=== PATIENT | male | born 1965 | race Caucasian/White ===

== ENCOUNTER → 2018-11-08 | Outpatient (CLI) | payer BC ==
--- NOTE | 2018-11-08 07:54 | US ---
EXAMINATION TYPE: US abdomen comp/pelvis limited DATE OF EXAM: 11/08/2018 COMPARISON: US 12/27/2012, CT 11/19/2012 CLINICAL HISTORY: R1012 Left upper quadrant pain R10.11 Rt upper sandoval. Difficult and limited exam due to overlying bowel gas EXAM MEASUREMENTS: Liver Length: 14.7 cm Gallbladder Wall: 0.3 cm CBD: 0.4 cm Spleen: 10.1 cm Right Kidney: 9.8 x 5.3 x 5.2 cm Left Kidney: 11.5 x 5.8 x 5.2 cm Pancreas: Obscured by bowel gas Liver: Limited exam due to overlying bowel gas. Visualized portions wnl Gallbladder: No stones visualized CBD: wnl as visualized, distal portion obscured by bowel gas Spleen: wnl Right Kidney: No hydronephrosis or masses seen Left Kidney: No hydronephrosis or masses seen Upper IVC: wnl Abd Aorta: wnl as visualized, limited due to overlying bowel gas Bladder: wnl Bilateral Jets Seen Yes IMPRESSION: No cholelithiasis or sonographic evidence of acute cholecystitis. No sonographic findings to correspond to the patient's left upper quadrant pain. Spleen appears within normal limits.
== END | disposition home or self-care (01) ==
LOC: RADUSWWP 06:44
PROVIDERS: ATTEND Family Medicine
DX: R10.12 Left upper quadrant pain (principal); R10.11 Right upper quadrant pain
CPT/HCPCS: 76700; 76857

== ENCOUNTER → 2019-07-26 | Outpatient (CLI) | payer BC ==
--- NOTE | 2019-07-26 17:09 | XR ---
EXAMINATION: XR chest 2V DATE AND TIME: 07/26/2019 4:40 PM CLINICAL INDICATION: YCH; R0602 SOB; dyspnea since started by multiple bases to 3 months ago TECHNIQUE: Departmental protocol COMPARISON: None FINDINGS: The lungs are clear. The pleural spaces are negative. The cardiac silhouette is not enlarged. The remainder of the mediastinal silhouette is unremarkable. The skeletal structures and soft tissues are negative for acute findings. IMPRESSION: NO ACUTE PROCESS.
== END | disposition home or self-care (01) ==
LOC: RADXRYALE 16:32
PROVIDERS: ATTEND Family Medicine
DX: R06.02 Shortness of breath (principal)
CPT/HCPCS: 71046

== ENCOUNTER → 2019-08-17 | Outpatient (CLI) | payer BC ==
--- NOTE | 2019-08-17 11:37 | P.STRESS ---
- Stress Test Note Stress Test Results/Findings: Exam Performed: stress test Exam Date: 08/17/19 Reason for Exam: SHAGUFTA Height: 5 ft 7 in Weight: 103.419 kg Protocol: JARROD Stage: 4 Duration of Exercise: 10:15 Resting Heart Rate: 67 Resting Blood Pressure: 129/85 Maximum Achieved Heart Rate: 151 Maximum Achieved Blood Pressure: 214/80 85% PMHR: 142 100% PMHR: 167 METS: 11.9 Technologist Comment: Stress Test Results/Findings: This is a 54-year-old with history of hypercholesterolemia, being evaluated for symptoms of shortness of breath. Stress data: Baseline EKG showed sinus rhythm with normal CO interval and QRS duration. Blood pressure at rest was 123/85, pulse rate of 67. Patient walked on the Jarrod protocol for 10 minutes and 15 seconds achieving a maximum heart rate of 151 with blood pressure 116/77. EKGs taken during and after the x-ray did not reveal changes of ischemia. Patient did not experience any chest pain but complained of shortness of breath. Final impression #1. Negative stress test #2. Good exercise capacity #3. No arrhythmias detected
--- NOTE | 2019-08-19 12:03 | EST ---
- Stress Test Note Stress Test Results/Findings: Exam Performed: stress test Exam Date: 08/17/19 Reason for Exam: SHAGUFTA Height: 5 ft 7 in Weight: 103.419 kg Protocol: JARROD Stage: 4 Duration of Exercise: 10:15 Resting Heart Rate: 67 Resting Blood Pressure: 129/85 Maximum Achieved Heart Rate: 151 Maximum Achieved Blood Pressure: 214/80 85% PMHR: 142 100% PMHR: 167 METS: 11.9 Technologist Comment: Stress Test Results/Findings: This is a 54-year-old with history of hypercholesterolemia, being evaluated for symptoms of shortness of breath. Stress data: Baseline EKG showed sinus rhythm with normal GA interval and QRS duration. Blood pressure at rest was 123/85, pulse rate of 67. Patient walked on the Jarrod protocol for 10 minutes and 15 seconds achieving a maximum heart rate of 151 with blood pressure 116/77. EKGs taken during and after the x-ray did not reveal changes of ischemia. Patient did not experience any chest pain but complained of shortness of breath. Final impression #1. Negative stress test #2. Good exercise capacity #3. No arrhythmias detected MTDD
== END | disposition home or self-care (01) ==
LOC: RADNMMAIN 08:16
PROVIDERS: ATTEND Family Medicine
DX: R06.02 Shortness of breath (principal); R06.09 Other forms of dyspnea
CPT/HCPCS: 93017

== ENCOUNTER → 2019-08-26 | Outpatient (CLI) | payer BC ==
--- NOTE | 2019-08-26 20:01 | ECHOF ---
Referral Reason:R06.02 Shortness of breath MEASUREMENTS -------- HEIGHT: 170.2 cm WEIGHT: 103.9 kg BP: IVSd: 1.2 cm (0.6 - 1.1) LVIDd: 4.8 cm (3.9 - 5.3) LVPWd: 1.5 cm (0.6 - 1.1) IVSs: 1.9 cm LVIDs: 2.6 cm LVPWs: 2.3 cm LAESV Index (A-L): 15.82 ml/m Ao Diam: 3.5 cm (2.0 - 3.7) AV Cusp: 2.4 cm (1.5 - 2.6) LA Diam: 3.6 cm (2.7 - 3.8) MV EXCURSION: 11.800 mm (> 18.000) MV EF SLOPE: 92 mm/s (70 - 150) EPSS: 0.4 cm MV E Bruce: 0.80 m/s MV DecT: 195 ms MV A Bruce: 0.56 m/s MV E/A Ratio: 1.43 RAP: 5.00 mmHg RVSP: 29.32 mmHg FINDINGS -------- Sinus rhythm. This was a technically adequate study. The left ventricular size is normal. There is mild concentric left ventricular hypertrophy. Overa ll left ventricular systolic function is normal with, an EF between 60 - 65 %. The diastolic fillin g pattern is normal for the age of the patient 11.08. The right ventricle is normal in size. Normal LA size by volume 22+/-6 ml/m2. The right atrium was not well visualized. Interatrial and interventricular septum intact. The aortic valve is trileaflet and appears structurally normal. There is no evidence of aortic regu rgitation. There is no evidence of aortic stenosis. No mitral regurgitation. Mild tricuspid regurgitation present. There is no evidence of pulmonary hypertension. The right v entricular systolic pressure, as measured by Doppler, is 29.32mmHg. Trace/mild (physiologic) pulmonic regurgitation. The aortic root size is normal. Normal inferior vena cava with normal inspiratory collapse consistent with estimated right atrial pre ssure of 5 mmHg. There is no pericardial effusion. CONCLUSIONS -------- 1. Sinus rhythm. 2. This was a technically adequate study. 3. The left ventricular size is normal. 4. There is mild concentric left ventricular hypertrophy. 5. Overall left ventricular systolic function is normal with, an EF between 60 - 65 %. 6. The diastolic filling pattern is normal for the age of the patient 11.08 7. The right ventricle is normal in size. 8. Normal LA size by volume 22+/-6 ml/m2. 9. The right atrium was not well visualized. 10. Interatrial and interventricular septum intact. 11. The aortic valve is trileaflet and appears structurally normal. 12. There is no evidence of aortic regurgitation. 13. There is no evidence of aortic stenosis. 14. No mitral regurgitation. 15. Mild tricuspid regurgitation present. 16. There is no evidence of pulmonary hypertension. 17. The right ventricular systolic pressure, as measured by Doppler, is 29.32mmHg. 18. Trace/mild (physiologic) pulmonic regurgitation. 19. The aortic root size is normal. 20. Normal inferior vena cava with normal inspiratory collapse consistent with estimated right atrial pressure of 5 mmHg. 21. There is no pericardial effusion. ELECTROCARDIOGRAPH REPAIRER: Tsering Umaña RDCS
== END | disposition home or self-care (01) ==
LOC: RADECHMAIN 14:30
PROVIDERS: ATTEND Family Medicine
DX: I07.1 Rheumatic tricuspid insufficiency (principal); I37.1 Nonrheumatic pulmonary valve insufficiency; E78.5 Hyperlipidemia, unspecified
CPT/HCPCS: 93306

== ENCOUNTER → 2020-05-25 | Outpatient (CLI) | payer BC ==
--- NOTE | 2020-05-26 13:42 | CT ---
EXAMINATION TYPE: CT chest w con DATE OF EXAM: 05/25/2020 COMPARISON: None HISTORY: SOB CT DLP: 450.7 mGycm, Automated exposure control for dose reduction was used. CONTRAST: Performed injected with 100 mL of Isovue 300. TECHNIQUE: Axial images were obtained at 5 mm thick sections. Reconstructed images are reviewed on [employer] computer in the coronal plane. FINDINGS: Portion of the thyroid visualized is normal. Some minimal thickening may be along the right middle lobe mediastinal border measuring 0.6 cm. Serie s 4 image 34. Follow-up can be performed. This is nonspecific. Atelectasis and mass are within the di fferential. No enlarged mediastinal or hilar adenopathy is evident. The ascending aorta diameter at the level o f the main pulmonary artery is 3.5 cm. The main pulmonary artery diameter at the bifurcation is 2.[address] sections are obtained through the upper abdomen. There is a cyst within the inferior media l right lobe liver measuring 1.8 cm and 4 Hounsfield units. IMPRESSIONS: 1. Small nonspecific increased density along the mediastinal border within the right middle lobe. Fol low-up CT chest in 6 months is recommended.
== END | disposition home or self-care (01) ==
LOC: RADCTMAIN 15:52
PROVIDERS: ATTEND Family Medicine
DX: J98.4 Other disorders of lung (principal); R06.09 Other forms of dyspnea; T63.441S Toxic effect of venom of bees, accidental (unintentional), sequela
CPT/HCPCS: 71260; Q9967

== ENCOUNTER → 2021-01-24 | Outpatient (CLI) | payer BC ==
--- NOTE | 2021-01-24 15:23 | CT ---
EXAMINATION TYPE: CT chest w con DATE OF EXAM: 01/24/2021 COMPARISON: 05/25/2020 HISTORY: Abnormal lung martin. Pt c/o SOB. Post covid CT DLP: 411.80 mGycm Automated exposure control for dose reduction was used. CONTRAST: CT scan of the chest is performed with IV Contrast, patient injected with 100 mL of Isovue 300. FINDINGS: LUNGS: Scattered airspace infiltrates are noted compatible with the provided history of Covid 19 pneu monia. No evidence for nodule or mass. There is no pleural effusion or pneumothorax seen. The trache obronchial tree is patent. MEDIASTINUM: There are no greater than 1 cm hilar or mediastinal lymph nodes. No pericardial effusi on is seen. Thoracic aorta is of normal caliber. The heart is not enlarged. UPPER ABDOMEN: No significant abnormality appreciated. OTHER: No additional significant abnormality is seen. IMPRESSION: Scattered airspace infiltrates are noted compatible with the provided history of Covid 1 9 pneumonia.
== END | disposition home or self-care (01) ==
LOC: RADCTMAIN 14:35
PROVIDERS: ATTEND Internal Medicine
DX: R91.8 Other nonspecific abnormal finding of lung field (principal)
CPT/HCPCS: 71260; Q9967

== ENCOUNTER → 2022-09-24 | Outpatient (CLI) | payer OTHER ==
--- NOTE | 2022-09-24 11:50 | MR ---
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 Comparison: none C2-C3: No evidence for degenerative disc disease. No disc bulge/herniation or protrusion. No Canal stenosis. Foramina are patent bilaterally. C3-C4: No evidence for degenerative disc disease. No disc bulge/herniation or protrusion. No Canal stenosis. Foramina are patent bilaterally. C4-C5: Mild decreased signal ossified compatible with mild degenerative disc disease. Mild left parac entral disc bulge with mild effacement ventral thecal sac. No evidence for vanessa disc herniation or p rotrusion. No central stenosis. Mild left-sided neural foraminal encroachment. C5-C6: Mild degenerative disc disease. Mild posterior disc bulge posterocentrally towards the left. M ild effacement ventral thecal sac. No evidence for disc herniation or central stenosis. Hypertrophic degenerative change of the cervical apophyseal joints resulting in moderate right-sided neural forami nal encroachment and mild left-sided neural foraminal encroachment. C6-C7: No evidence for degenerative disc disease. No disc bulge/herniation or protrusion. No Canal stenosis. Foramina are patent bilaterally. C7-T1: No evidence for degenerative disc disease. No disc bulge/herniation or protrusion. No Canal stenosis. Foramina are patent bilaterally. Cervical segments are intact. There is normal alignment. Cervical spinal cord is of normal signal. Craniovertebral junction relationships are within normal limits. IMPRESSION: 1. Degenerative disc disease with disc bulging as noted. 2. Neural foraminal encroachment at C5-6 and C4-5 as outlined above.
== END | disposition home or self-care (01) ==
LOC: RADMRIMAIN 10:10
PROVIDERS: ATTEND Physician Assistant
DX: M99.61 Osseous and subluxation stenosis of intervertebral foramina of cervical region (principal); M50.322 Other cervical disc degeneration at C5-C6 level; M50.222 Other cervical disc displacement at C5-C6 level
CPT/HCPCS: 72141